=== PATIENT | male | born 1970 | race Hispanic/Latino ===

== ENCOUNTER 2023-09-20 04:46 | Inpatient (IN) | payer OTHER ==
[~2023-09-20] VITALS: Ht 177.8 cm; Wt 78.2 kg
[2023-09-20] VITALS (7 sets, daily range): BP systolic 109–130; BP diastolic 64–84; PULSE 63–77; RESP 16; O2SAT 99
[~2023-09-20 04:46] MED LIST: CEPH500T PO; DOXY-469 PO; GLIP5TAB15 PO; IBUP-2784 PO; METF-444 PO; TRAM50TA2 PO
[2023-09-20 05:09] LABS: BASOPHILS # (AUTO) 0.02 K/uL (0.00-0.20); BASOPHILS % (AUTO) 0.6 % (0.0-5.0); EOSINOPHILS # (AUTO) 0.13 K/uL (0.00-0.70); EOSINOPHILS % (AUTO) 4.1 % (0.0-8.0); HEMATOCRIT 39.8 % (42-54); IMMATURE GRANULOCYTE ABSOLUTE 0.01 K/uL (0-1); LYMPHOCYTES # (AUTO) 1.1 K/uL (1.0-4.8); LYMPHOCYTES % (AUTO) 34.2 % (21.0-51.0); MEAN CORPUSCULAR HEMOGLOBIN 28.7 pg (27.0-33.0); MEAN CORPUSCULAR HGB CONC 34.4 g/dL (32.0-36.0); MEAN CORPUSCULAR VOLUME 83.3 fL (79-99); MONOCYTES # (AUTO) 0.4 K/uL (0.1-1.0); MONOCYTES % (AUTO) 13.8 % (3.0-13.0); NEUTROPHILS # (AUTO) 1.5 K/uL (1.8-7.7); PLATELET COUNT (AUTO) 175 K/uL (130-400); RED BLOOD CELL COUNT(AUTO) 4.78 MIL/uL (4.50-6.20); RED CELL DISTRIBUTION WIDTH 12.3 % (11.0-15.5); WHITE BLOOD COUNT (AUTO) 3.2 K/uL (4.8-10.8)
[2023-09-20 05:17] LABS: POTASSIUM 3.7 mmol/L (3.5-5.1)
[2023-09-20 05:25] LABS: MAGNESIUM 1.9 mg/dL (1.80-2.40)
[2023-09-20] MEDS ORDERED: ONDANSETRON 4MG INJ IVP ONE (05:30)
[2023-09-20] MEDS ORDERED: ASPIRIN 325MG TAB PO ONE (05:30)
[2023-09-20] MEDS ORDERED: NITROGLYCERIN 0.4 MG SL TAB SL PRN ×2 (05:30→08:00)
[2023-09-20] MEDS ORDERED: ACETAMINOPHEN 325 MG TAB PO ONE (05:30)
[2023-09-20 05:33] LABS: B-TYPE NATRIURETIC PEPTIDE 16 pg/mL (0-100)
[2023-09-20 05:42] LABS: INR < 0.93 (0.85-1.15); PROTHROMBIN TIME 10.2 SEC (9.6-11.6)
[2023-09-20 06:03] LABS: ALBUMIN 3.2 g/dL (3.5-5.0); BILIRUBIN,DIRECT 0.1 mg/dL (0.0-0.3); BILIRUBIN,TOTAL 0.4 mg/dL (0.2-1.0); TOTAL PROTEIN, SERUM 7.1 g/dL (6.0-8.3)
[2023-09-20] MEDS: HEPARIN 5,000 UNIT VIAL IV SCH (06:03)
[2023-09-20] MEDS: HEPARIN 25,000 UNITS/250ML D5W 250 ML IV PRN ×2 (06:15→16:17)
[2023-09-20] MEDS ORDERED: ACETAMINOPHEN 325 MG TAB PO PRN ×2 (08:00)
[2023-09-20] MEDS ORDERED: DEXTROSE 50%-WATER 50 ML DISP.SYRIN IV PRN (08:00)
[2023-09-20] MEDS ORDERED: MAG/ALUM/SIMETH 30 ML UDCUP PO PRN (08:00)
[2023-09-20] MEDS ORDERED: KCL 20 MEQ ERTAB PO PRN (08:00)
[2023-09-20] MEDS ORDERED: DiphenhydrAMINE HCL 50 MG/ML VIAL IV PRN (08:00)
[2023-09-20] MEDS ORDERED: GLUCAGON 1MG KIT 1 MG ML IM PRN (08:00)
[2023-09-20] MEDS ORDERED: HYDROCODONE/ACETAMINOPHEN 5/325 MG TAB PO PRN (08:00)
[2023-09-20] MEDS ORDERED: MAGNESIUM 2GM PREMIX 50ML 50 ML IV PRN (08:00)
[2023-09-20] MEDS ORDERED: POTASSIUM CHLORIDE 20MEQ/100ML 100 ML IV PRN (08:00)
[2023-09-20] MEDS ORDERED: DIPHENHYDRAMINE HCL 25 MG CAPSULE PO PRN (08:00)
[2023-09-20] MEDS ORDERED: MORPHINE 2 MG SYG IV PRN (08:00)
[2023-09-20] MEDS ORDERED: GUAIFENESIN-DM 200/20 MG 10 ML PO PRN (08:00)
[2023-09-20] MEDS ORDERED: LACTULOSE 20 GM/30 ML UDCUP PO PRN (08:00)
[2023-09-20] MEDS ORDERED: ONDANSETRON 4MG INJ IV PRN (08:00)
[2023-09-20] MEDS ORDERED: FAMOTIDINE 20MG VIAL IV PRN (09:00)
[2023-09-20 09:04] LABS: HEMOGLOBIN A1C 9.3 % (4.0-6.0); THYROID STIMULATING HORMONE 1.36 uIU/mL (0.36-3.74)
[2023-09-20] MEDS: FAMOTIDINE 20MG TAB PO SCH ×2 (09:26→20:24)
[2023-09-20] MEDS: CLOPIDOGREL 75MG TAB PO SCH (09:26)
[2023-09-20] MEDS: METOPROLOL TARTRATE 25 MG TAB PO SCH ×2 (09:26→20:24)
[2023-09-20] MEDS: ASPIRIN 81MG CHEW TAB PO SCH (09:30)
[2023-09-20 10:52] LABS: % IRON SATURATION 28.7 % (30-44)
[2023-09-20] MEDS: INSULIN HUMULIN R 100 UNIT/ML 3ML SQ SCH ×3 (11:24→20:26)
[2023-09-20 11:57] LABS: AMPHET/METH SCREEN,URINE NEGATIVE (NEGATIVE); BARBITURATE SCREEN, URINE NEGATIVE (NEGATIVE); BENZODIAZEPINES SCREEN,URINE NEGATIVE (NEGATIVE); CANNABINOID SCREEN,URINE NEGATIVE (NEGATIVE); COCAINE SCREEN,URINE NEGATIVE (NEGATIVE); OPIATE SCREEN,URINE NEGATIVE (NEGATIVE); PHENCYCLIDINE SCREEN,URINE NEGATIVE (NEGATIVE)
[2023-09-20] MEDS ORDERED: REGADENOSON 0.4 MG/5 ML PF SYG IVP SCH (12:30)
[2023-09-20 17:21] LABS: INR < 0.93 (0.85-1.15); PROTHROMBIN TIME 10.5 SEC (9.6-11.6)
[2023-09-20] MEDS ORDERED: METF-446 PO (17:24)
[2023-09-20] MEDS ORDERED: EPLE25TA10 PO (17:28)
[2023-09-20] MEDS ORDERED: AEC81 PO (17:28)
[2023-09-20] MEDS ORDERED: PRAS10TA9 PO (17:28)
[2023-09-20] MEDS ORDERED: ATOR-2 PO (17:28)
[2023-09-20] MEDS ORDERED: LOSA25TA41 PO (17:28)
[2023-09-20] MEDS ORDERED: AMOX1TAB16 PO (17:28)
[2023-09-20] MEDS ORDERED: BENZ200C53 PO (17:30)
[2023-09-20] MEDS ORDERED: EMPA10TA PO (17:30)
[2023-09-20] MEDS ORDERED: METO-391 PO (17:30)
[2023-09-20 17:58] LABS: PARTIAL THROMBOPLASTIN TIME 122.6 SEC (26.3-35.5)
[2023-09-20] MEDS: ATORVASTATIN 40 MG TABLET PO SCH (20:24)
[2023-09-20] MEDS: HYDROCODONE/ACETAMINOPHEN 5/325 MG TAB PO PRN (20:47)
[2023-09-20 23:34] LABS: INR < 0.93 (0.85-1.15); PROTHROMBIN TIME 10.3 SEC (9.6-11.6)
[2023-09-20 23:59] LABS: PARTIAL THROMBOPLASTIN TIME 106.7 SEC (26.3-35.5)
[2023-09-21] VITALS (16 sets, daily range): BP systolic 104–136; BP diastolic 42–72; PULSE 65–84; RESP 18–88; O2SAT 98–99
[2023-09-21] MEDS: HEPARIN 5,000 UNIT VIAL IV SCH (05:05)
[2023-09-21 05:29] LABS: BASOPHILS # (AUTO) 0.03 K/uL (0.00-0.20); BASOPHILS % (AUTO) 0.8 % (0.0-5.0); EOSINOPHILS # (AUTO) 0.27 K/uL (0.00-0.70); EOSINOPHILS % (AUTO) 7.2 % (0.0-8.0); HEMATOCRIT 39.1 % (42-54); IMMATURE GRANULOCYTE ABSOLUTE 0.01 K/uL (0-1); LYMPHOCYTES # (AUTO) 1.8 K/uL (1.0-4.8); LYMPHOCYTES % (AUTO) 46.8 % (21.0-51.0); MEAN CORPUSCULAR HEMOGLOBIN 28.3 pg (27.0-33.0); MEAN CORPUSCULAR HGB CONC 33.8 g/dL (32.0-36.0); MEAN CORPUSCULAR VOLUME 83.9 fL (79-99); MONOCYTES # (AUTO) 0.4 K/uL (0.1-1.0); MONOCYTES % (AUTO) 9.4 % (3.0-13.0); NEUTROPHILS # (AUTO) 1.3 K/uL (1.8-7.7); NEUTROPHILS % (AUTO) 35.5 % (40.0-77.0); PLATELET COUNT (AUTO) 195 K/uL (130-400); RED BLOOD CELL COUNT(AUTO) 4.66 MIL/uL (4.50-6.20); RED CELL DISTRIBUTION WIDTH 12.3 % (11.0-15.5); WHITE BLOOD COUNT (AUTO) 3.7 K/uL (4.8-10.8)
[2023-09-21 05:46] LABS: MAGNESIUM 1.8 mg/dL (1.80-2.40); PHOSPHORUS 3.7 mg/dL (2.5-4.9); POTASSIUM 3.8 mmol/L (3.5-5.1)
[2023-09-21] MEDS ORDERED: HEPARIN 25,000 UNITS/250ML D5W 250 ML IV ONE (06:19)
[2023-09-21] MEDS: INSULIN HUMULIN R 100 UNIT/ML 3ML SQ SCH ×4 (06:35→20:42)
[2023-09-21] MEDS: HEPARIN 25,000 UNITS/250ML D5W 250 ML IV SCH ×3 (06:36→19:30)
[2023-09-21] MEDS ORDERED: HEPARIN 5,000 UNIT VIAL SQ PRN (07:30)
[2023-09-21] MEDS: FAMOTIDINE 20MG TAB PO SCH ×2 (08:42→20:38)
[2023-09-21] MEDS: ASPIRIN 81MG CHEW TAB PO SCH (08:42)
[2023-09-21] MEDS: METOPROLOL TARTRATE 25 MG TAB PO SCH ×2 (08:42→20:38)
[2023-09-21] MEDS: CLOPIDOGREL 75MG TAB PO SCH (08:43)
[2023-09-21] MEDS ORDERED: NITROGLYCERIN 1GM OINT 1 INCH/1GM TD SCH (14:30)
[2023-09-21] MEDS: ATORVASTATIN 40 MG TABLET PO SCH (20:37)
[2023-09-22] VITALS (45 sets, daily range): BP systolic 104–142; BP diastolic 52–93; PULSE 59–80; RESP 8–33; O2SAT 98–99
[2023-09-22] MEDS: HEPARIN 25,000 UNITS/250ML D5W 250 ML IV SCH ×4 (01:30→18:41)
[2023-09-22 04:06] LABS: BASOPHILS # (AUTO) 0.02 K/uL (0.00-0.20); BASOPHILS % (AUTO) 0.5 % (0.0-5.0); EOSINOPHILS # (AUTO) 0.25 K/uL (0.00-0.70); EOSINOPHILS % (AUTO) 5.9 % (0.0-8.0); IMMATURE GRANULOCYTE ABSOLUTE 0.01 K/uL (0-1); LYMPHOCYTES # (AUTO) 1.4 K/uL (1.0-4.8); LYMPHOCYTES % (AUTO) 33.6 % (21.0-51.0); MEAN CORPUSCULAR HEMOGLOBIN 28.3 pg (27.0-33.0); MEAN CORPUSCULAR HGB CONC 34.2 g/dL (32.0-36.0); MEAN CORPUSCULAR VOLUME 82.8 fL (79-99); MONOCYTES # (AUTO) 0.3 K/uL (0.1-1.0); MONOCYTES % (AUTO) 6.8 % (3.0-13.0); NEUTROPHILS # (AUTO) 2.3 K/uL (1.8-7.7); PLATELET COUNT (AUTO) 168 K/uL (130-400); RED BLOOD CELL COUNT(AUTO) 4.59 MIL/uL (4.50-6.20); RED CELL DISTRIBUTION WIDTH 12.1 % (11.0-15.5); WHITE BLOOD COUNT (AUTO) 4.3 K/uL (4.8-10.8)
[2023-09-22 04:14] LABS: CREATININE 0.8 mg/dL (0.5-1.5); INR < 0.93 (0.85-1.15); POTASSIUM 3.5 mmol/L (3.5-5.1); PROTHROMBIN TIME 10.6 SEC (9.6-11.6)
[2023-09-22 04:16] LABS: PARTIAL THROMBOPLASTIN TIME 45.8 SEC (26.3-35.5)
[2023-09-22] MEDS: INSULIN HUMULIN R 100 UNIT/ML 3ML SQ SCH ×4 (06:56→20:58)
[2023-09-22] MEDS: POTASSIUM CHLORIDE 20MEQ/100ML 100 ML IV ONE ×2 (08:30→09:59)
[2023-09-22] MEDS: ASPIRIN 81MG CHEW TAB PO SCH (10:00)
[2023-09-22] MEDS: FAMOTIDINE 20MG TAB PO SCH ×2 (10:00→20:56)
[2023-09-22] MEDS: CLOPIDOGREL 75MG TAB PO SCH (10:00)
[2023-09-22] MEDS: METOPROLOL TARTRATE 25 MG TAB PO SCH ×2 (10:00→20:57)
[2023-09-22] MEDS: POTASSIUM CHLORIDE 10% ELIXIR 20 MEQ/15 ML UDCUP PO PRN (10:36)
[2023-09-22] MEDS ORDERED: IOHEXOL 350 MG/ML 100ML INFUS..BTL IV ONE ×2 (12:23→14:18)
[2023-09-22] MEDS ORDERED: MIDAZOLAM HCL 1 MG/ML 2ML VIAL ONE ×2 (12:23→13:29)
[2023-09-22] MEDS ORDERED: LIDOCAINE HCL 400MG/20ML VIAL ONE (12:23)
[2023-09-22] MEDS ORDERED: FENTANYL CITRATE PF 50 MCG/1 ML 2ML VIAL ONE (12:23)
[2023-09-22] MEDS ORDERED: VERAPAMIL HCL 2.5 MG/ML VIAL ONE (12:24)
[2023-09-22] MEDS ORDERED: HEPARIN 10,000 UNIT/10ML (1,000 UNIT/ML) VIAL ONE (12:24)
[2023-09-22] MEDS ORDERED: GLUCAGON 1MG KIT 1 MG ML IM PRN (15:00)
[2023-09-22] MEDS ORDERED: DEXTROSE 50%-WATER 50 ML DISP.SYRIN IV PRN (15:00)
[2023-09-22] MEDS ORDERED: 0.9%NACL 1000ML 1,000 ML IV SCH (15:00)
[2023-09-22] MEDS: HYDROCODONE/ACETAMINOPHEN 5/325 MG TAB PO PRN (20:56)
[2023-09-22] MEDS ORDERED: ATORVASTATIN 40 MG TABLET PO SCH (21:00)
[2023-09-23] VITALS (36 sets, daily range): BP systolic 95–125; BP diastolic 49–93; PULSE 58–86; RESP 9–32; O2SAT 96–97
[2023-09-23] MEDS: HEPARIN 25,000 UNITS/250ML D5W 250 ML IV SCH ×2 (01:30→06:28)
[2023-09-23 04:57] LABS: BASOPHILS # (AUTO) 0.02 K/uL (0.00-0.20); BASOPHILS % (AUTO) 0.4 % (0.0-5.0); EOSINOPHILS # (AUTO) 0.24 K/uL (0.00-0.70); EOSINOPHILS % (AUTO) 4.6 % (0.0-8.0); HEMATOCRIT 35.8 % (42-54); IMMATURE GRANULOCYTE ABSOLUTE 0.03 K/uL (0-1); LYMPHOCYTES # (AUTO) 1.8 K/uL (1.0-4.8); LYMPHOCYTES % (AUTO) 33.9 % (21.0-51.0); MEAN CORPUSCULAR HEMOGLOBIN 28.4 pg (27.0-33.0); MEAN CORPUSCULAR HGB CONC 34.4 g/dL (32.0-36.0); MEAN CORPUSCULAR VOLUME 82.7 fL (79-99); MONOCYTES # (AUTO) 0.4 K/uL (0.1-1.0); MONOCYTES % (AUTO) 7.6 % (3.0-13.0); NEUTROPHILS # (AUTO) 2.8 K/uL (1.8-7.7); NEUTROPHILS % (AUTO) 52.9 % (40.0-77.0); PLATELET COUNT (AUTO) 185 K/uL (130-400); RED BLOOD CELL COUNT(AUTO) 4.33 MIL/uL (4.50-6.20); RED CELL DISTRIBUTION WIDTH 12.1 % (11.0-15.5); WHITE BLOOD COUNT (AUTO) 5.3 K/uL (4.8-10.8)
[2023-09-23 05:07] LABS: BILIRUBIN,TOTAL 0.5 mg/dL (0.2-1.0); CREATININE 0.8 mg/dL (0.5-1.5); MAGNESIUM 1.6 mg/dL (1.80-2.40); POTASSIUM 3.6 mmol/L (3.5-5.1); TOTAL PROTEIN, SERUM 6.7 g/dL (6.0-8.3)
[2023-09-23] MEDS: HEPARIN 5,000 UNIT VIAL IV SCH (05:16)
[2023-09-23] MEDS: INSULIN HUMULIN R 100 UNIT/ML 3ML SQ SCH ×2 (06:28→11:30)
[2023-09-23] MEDS: METOPROLOL TARTRATE 25 MG TAB PO SCH (08:33)
[2023-09-23] MEDS: ASPIRIN 81MG CHEW TAB PO SCH (08:33)
[2023-09-23] MEDS: POTASSIUM CHLORIDE 10% ELIXIR 20 MEQ/15 ML UDCUP PO PRN (08:34)
[2023-09-23] MEDS: CLOPIDOGREL 75MG TAB PO SCH (08:34)
[2023-09-23] MEDS: FAMOTIDINE 20MG TAB PO SCH (08:34)
[2023-09-23] MEDS ORDERED: CLOP-31 PO (14:14)
[2023-09-23] MEDS ORDERED: ISOS30TA92 PO (14:14)
[2023-09-23] MEDS ORDERED: METO25TA6 PO (14:14)
== END 2023-09-23 15:10 | disposition home or self-care (01) | DRG 322 ==
LOC: EDH 04:46 → OBSVTOIN 04:47 → EDHIP 04:47 → 4AH 13:00 → 2BH 09-21 14:39 → OBSVTOIN 09-22 10:33 → INTOOBSV 09-22 10:33
PROVIDERS: ADMIT Internal Medicine; ATTEND Internal Medicine
PROC: 4A023N7 Measurement of Cardiac Sampling and Pressure, Left Heart, Percutaneous Approach (ICD-10-PCS; principal; 2023-09-22)
PROC: 027035Z Dilation of Coronary Artery, One Artery with Two Drug-eluting Intraluminal Devices, Percutaneous Approach (ICD-10-PCS; 2023-09-22)
PROC: B2111ZZ Fluoroscopy of Multiple Coronary Arteries using Low Osmolar Contrast (ICD-10-PCS; 2023-09-22)
DX: R07.89 Other chest pain (principal); I50.20 Unspecified systolic (congestive) heart failure; E11.65 Type 2 diabetes mellitus with hyperglycemia; E78.00 Pure hypercholesterolemia, unspecified; I11.0 Hypertensive heart disease with heart failure; I25.10 Atherosclerotic heart disease of native coronary artery without angina pectoris; I25.2 Old myocardial infarction; Z56.0 Unemployment, unspecified; Z82.49 Family history of ischemic heart disease and other diseases of the circulatory system; Z86.73 Personal history of transient ischemic attack (TIA), and cerebral infarction without residual deficits; Z91.199 Patient's noncompliance with other medical treatment and regimen due to unspecified reason; Z95.5 Presence of coronary angioplasty implant and graft
CPT/HCPCS: 36415; 71045; 78452; 80048; 80053; 80076; 80305; 82550; 82948; 83036; 83540; 83550; 83605; 83735; 83880; 84100; 84443; 84484; 85025; 85347; 85378; 85610; 85730; 93005; 93017; 93306; 93458; 96374; 99156; 99157; A9500; C1769; C1887; C9600; G0378; J1644; J1815; J2250; J2405; J2785; J3010; J3475; J3480; J3490; Q9967; A4649; C1725; C1874; C1894; Q9965